=== PATIENT | female | born 1985 | race Caucasian/White ===

== ENCOUNTER 2023-05-16 06:25 | Inpatient (IN) | payer SELFPAY ==
[2023-05-16] VITALS (16 sets, daily range): BP systolic 118–199; BP diastolic 58–103; O2SAT 97–98
[~2023-05-16] VITALS: Ht 162.6 cm; Wt 109.8 kg
[2023-05-16] MEDS ORDERED: HOME MED LIST COMPLETE! XX SCH (06:50)
[2023-05-16 07:46] LABS: HEMATOCRIT 30.5 % (36.0-47.0); HEMOGLOBIN 9.5 g/dl (12.0-15.5); MEAN CORPUSCULAR HEMOGLOBIN 25.5 pg (27.0-33.0); MEAN CORPUSCULAR HGB CONC 31.1 g/dl (32.0-36.5); PLATELET COUNT, AUTOMATED 201 10^3/uL (150-450); RED BLOOD COUNT 3.72 10^6/uL (4.00-5.40); WHITE BLOOD COUNT 6.8 10^3/uL (4.0-10.0)
[2023-05-16] MEDS ORDERED: TERBUTALINE SULFATE 1 MG/ML 1ML VIAL SC ONE (12:00)
[2023-05-16] MEDS ORDERED: LIDOCAINE 1% MDV 20ML VIAL INFIL PRN (13:40)
[2023-05-16] MEDS ORDERED: OXYTOCIN DRIP 30 UNITS in IV 1 EA IV PRN (13:40)
[2023-05-16] MEDS ORDERED: TRANEXAMIC ACID INJection 1,000 MG in NS 100 ML IV PRN (13:40)
[2023-05-16] MEDS ORDERED: METHYLERGONOVINE MALEATE 0.2MG/ML 1ML VIAL IM PRN (13:40)
[2023-05-16 15:36] LABS: HIV 1&2 SCREEN NEGATIVE (NEGATIVE)
[2023-05-16] MEDS ORDERED: RHOGAM 300MCG (1500IU) INJ IM SCH (19:25)
[2023-05-16] MEDS ORDERED: MOM 30ML SUSPENSION UDC PO PRN (19:25)
[2023-05-16] MEDS ORDERED: DOCUSATE SODIUM 100MG CAPSULE PO PRN (19:25)
[2023-05-16] MEDS ORDERED: IBUPROFEN 600MG TAB PO PRN (19:25)
[2023-05-16] MEDS ORDERED: METHYLERGONOVINE MALEATE 0.2 MG TAB PO PRN (19:25)
[2023-05-16] MEDS ORDERED: OXYTOCIN DRIP 30 UNITS in IV 1 EA IV SCH (19:25)
[2023-05-16] MEDS ORDERED: ANUSOL HC CREAM 30GM TOP PRN (19:25)
[2023-05-16] MEDS ORDERED: IBUPROFEN 800 MG TAB PO PRN (19:25)
[2023-05-16] MEDS ORDERED: ACETAMINOPHEN TAB 650MG DOSE (2X325MG) PO PRN (19:25)
[2023-05-16] MEDS ORDERED: ACETAMINOPHEN 500 MG TAB PO PRN (19:25)
[2023-05-16] MEDS ORDERED: DIBUCAINE 1% OINTMENT 30GM TOP PRN (19:25)
[2023-05-16] MEDS ORDERED: CARBOPROST TROMETHAMINE 250 MCG/ML AMP IM ONE (21:15)
[2023-05-16] MEDS ORDERED: LOPERAMIDE 2 MG CAPLET PO ONE (21:20)
[2023-05-16] MEDS ORDERED: OXYTOCIN 30UNITS IN 0.9% NaCl 500ML IV BAG As Ordered ONE (22:11)
[2023-05-16] MEDS ORDERED: OXYTOCIN DRIP 30 UNITS in IV 1 EA IV ONE (23:45)
[2023-05-17 06:18] VITALS: BP 137/84; O2SAT 98
[2023-05-17] MEDS: PRENATAL VITAMINS CHEWABLE TABLET PO SCH (09:00)
[2023-05-17 14:00] VITALS: BP 131/82; O2SAT 96
[2023-05-17 18:00] VITALS: BP 142/90; O2SAT 98
[2023-05-17 22:00] VITALS: BP 134/88; O2SAT 96
[2023-05-18 02:00] VITALS: BP 145/75; O2SAT 94
[2023-05-18 06:00] VITALS: BP 135/75; O2SAT 96
[2023-05-18] MEDS ORDERED: MEASLES,MUMPS,RUBELLA VACCINE INJ (MMR-II) SC.IMMUN ONE (09:00)
[2023-05-18] MEDS: PRENATAL VITAMINS CHEWABLE TABLET PO SCH (09:18)
[2023-05-18 10:00] VITALS: BP 132/79; O2SAT 99
[2023-05-18] MEDS ORDERED: IBUP-1022 PO (14:12)
[2023-05-18] MEDS ORDERED: COLA100C5 PO (14:12)
[2023-05-18] MEDS ORDERED: ACET-683 PO (14:12)
[2023-05-18 14:30] VITALS: BP 136/83; O2SAT 100
== END 2023-05-18 15:24 | disposition home or self-care (01) | DRG 560 ==
LOC: M LDO 06:25 → M LDI 13:31 → M OBS 22:35
PROVIDERS: ADMIT Obstetrics & Gynecology; ATTEND Obstetrics & Gynecology
PROC: 10E0XZZ Delivery of Products of Conception, External Approach (ICD-10-PCS; principal; 2023-05-16)
PROC: 10S0XZZ Reposition Products of Conception, External Approach (ICD-10-PCS; 2023-05-16)
DX: O64.8XX0 Obstructed labor due to other malposition and malpresentation, not applicable or unspecified (principal); O48.0 Post-term pregnancy; Z3A.42 42 weeks gestation of pregnancy; Z37.0 Single live birth